=== PATIENT | female | born 1960 | race Caucasian/White ===

== ENCOUNTER 2016-06-10 18:20 | Emergency (ER) | payer OTHER ==
[~2016-06-10] VITALS: Ht 160 cm; Wt 53.5 kg
[~2016-06-10 18:20] MED LIST: ZITH250T PO
[2016-06-10 18:33] VITALS: BP 120/74; PULSE 80; RESP 20; TEMP 98; O2SAT 100
[2016-06-10 19:22] LABS: BLOOD, URINE NEG (NEG); GLUCOSE,URINE NEG (NEG); KETONE, URINE NEG (NEG); NITRITE,URINE NEG (NEG); PH, URINE 5.5 (5.0-8.5)
[2016-06-10] MEDS ORDERED: BACT800T5 PO (19:22)
[2016-06-10] MEDS ORDERED: PREM0.45 PO (19:24)
[2016-06-10 19:41] LABS: BACTERIA, URINE OCC /hpf; MUCUS URINE MOD /lpf (OCC); SQUAMOUS EPITHELIAL CELL URINE 0-5 /hpf (0-5); URINE COLOR YELLOW (YELLW/STRAW)
[2016-06-10 19:42] LABS: COMMENT (UR) CULT NOT INDICATED; CULTURE IF INDICATED CULT NOT INDICATED; WBC, URINE 0-2 /hpf (0-5)
--- NOTE | 2016-06-10 19:47 | PD ---
HPI Chief Complaint: Complaint Time Seen by Provider: 19:23 Travel History International Travel<30 days: No Contact w/Intl Traveler<30days: No Traveled to known affect area: No History of Present Illness HPI Patient is a 56-year-old female with a history of recurrent urinary tract infections presents to the emergency department for dysuria burning on urination. Patient states she was seen at a urgent care clinic and diagnosed urinary tract infection 2 days ago and started on Bactrim. She states her burning on urination has not improved and decided to come in emerged Department for reevaluation. She denies any fever or flank pain nausea vomiting vaginal bleeding or vaginal discharge. PFSH Past Medical History Cancer: Yes (MELANOMA) Diminished Hearing: No Genitourinary: Yes (CHRONIC UTI) Tetanus Vaccination: Unknown ?: Not Menopausal: Yes Tubal Ligation: Yes Past Surgical History Section: Yes (2x) Other Surgery: Yes (SKIN CA X 4 ) Social History Alcohol Use: No Tobacco Use: No Substance Use: No Allergies-Medications (Allergen,Severity, Reaction): Coded Allergies: No Known Allergies (Verified , 06/10/16) Reported Meds & Prescriptions Reported Meds & Active Scripts Active Reported Estradiol 0.5 Mg Tab 0.5 Mg PO DAILY Bactrim DS (Sulfamethoxazole-Trimethoprim) 800-160 Mg Tab 1 Tab PO BID Review of Systems Except as stated in HPI: all other systems reviewed are Neg Physical Exam Narrative GENERAL: Well-developed well-nourished no apparent distress, appears quite pleasant and nontoxic. SKIN: Warm and dry. HEAD: Atraumatic. Normocephalic. EYES: Pupils equal and round. No scleral icterus. No injection or drainage. ENT: No nasal bleeding or discharge. Mucous membranes pink and moist. NECK: Trachea midline. No JVD. CARDIOVASCULAR: Regular rate and rhythm. No murmur appreciated. RESPIRATORY: No accessory muscle use. Clear to auscultation. Breath sounds equal bilaterally. GASTROINTESTINAL: Abdomen soft, non-tender, nondistended. Hepatic and splenic margins not palpable. MUSCULOSKELETAL: No obvious deformities. No clubbing. No cyanosis. No edema. NEUROLOGICAL: Awake and alert. No obvious cranial nerve deficits. Motor grossly within normal limits. Normal speech. PSYCHIATRIC: Appropriate mood and affect; insight and judgment normal. Data Data Last Documented VS Vital Signs Date Time Temp Pulse Resp B/P Pulse Ox O2 Delivery O2 Flow Rate FiO2 06/10/16 20:48 68 20 117/85 97 06/10/16 18:33 98.0 Orders Urinalysis - C+S If Indicated (06/10/16 19:12) Labs Laboratory Tests Test 06/10/16 19:20 Urine Color YELLOW Urine Turbidity SLIGHT Urine pH 5.5 Urine Specific [place] 1.027 Urine Protein NEG mg/dL Urine Glucose (UA) NEG mg/dL Urine Ketones NEG mg/dL Urine Occult Blood NEG Urine Nitrite NEG Urine Bilirubin NEG Urine Leukocyte Esterase NEG Urine WBC 0-2 /hpf Urine Squamous Epithelial 0-5 /hpf Cells Urine Bacteria OCC /hpf Urine Mucus MOD /lpf Microscopic Urinalysis Comment CULT NOT INDICATED MDM Medical Decision Making Medical Screen Exam Complete: Yes Emergency Medical Condition: Yes Differential Diagnosis Urinary tract infection, dysuria, pelvic floor dysfunction, vaginitis. Narrative Course Patient roomed in the emergency department, urinalysis shows no evidence of infection. Nitrate negative and leukocyte esterase negative. Discussed the patient and recommendations. Vaginal exam is part of a complete workup and she would rather do this with her filling layer up. Otherwise she appears well recommended she take her Bactrim until completion discussed Azo for symptomatic control. She is stable for discharge at this time an outpatient workup. Diagnosis Primary Impression: Dysuria Additional Instructions: Call your filling layer up tomorrow. Disposition: 01 DISCHARGE HOME Condition: Stable Tucker Huston MD Jun 10, 2016 19:47
[2016-06-10] MEDS ORDERED: ESTR0.5T PO (20:23)
[2016-06-10 20:48] VITALS: BP 117/85
== END 2016-06-10 20:53 | disposition home or self-care (01) ==
LOC: PHED 18:20
DX: R30.0 Dysuria (principal); Z87.440 Personal history of urinary (tract) infections; Z85.828 Personal history of other malignant neoplasm of skin
CPT/HCPCS: 81001; 99283